=== PATIENT | male | born 1965 | race Caucasian/White ===

== ENCOUNTER 2017-03-09 08:26 | Day surgery (SDC) | payer BC ==
--- NOTE | ~2017-03-09 | EGD ---
EGD REPORT [facility] [address] [place]. [address] NAME: ROSANNA EARL : [birth year] STATUS : [facility]#: [id number] AGE: 51 ADM/REG DATE : 03/09/17 MR#: [id number] REPORT SERV DATE: 03/09/17 DICTATED BY: DONALDO LOPES DATE: 03/09/17 REPORT STATUS : Draft [facility]ANS[facility]IBED BY: [facility] DATE: 03/09/17 Endoscopy Center Patient Name: Rosanna Earl Date of : 1965 Attending MD: DONALDO LOPES MD Procedure Date No Time: 03/09/2017 Procedure: Colonoscopy Indications: Iron deficiency anemia; Crohn's ileitis; Humira 40mg qowk. Patient Profile: Informed consent was obtained from the patient by me prior to the procedure. Risks, benefits, and alternatives were discussed including the risk of bleeding, perforation, infection, reaction to medicine, missed lesion, and cardiopulmonary complications. Referring MD: JOHNNY DAILY Medicines: Monitored Anesthesia Care Complications: No immediate complications. Procedure: Pre-Anesthesia Assessment: - ASA Grade Assessment: III - A patient with severe systemic disease. After I obtained informed consent, the scope was passed under direct vision. Throughout the procedure, the patient's blood pressure, pulse, and oxygen saturations were monitored continuously. The PCF [id number] was introduced through the anus and advanced to the cecum, identified by appendiceal orifice and ileocecal valve. The colonoscope was slowly withdrawn with careful examination all mucosal surfaces including specific attention around flexures and tip deflection behind folds; retroflexion performed in rectum. The colonoscopy was performed without difficulty. The patient tolerated the procedure well. The quality of the bowel preparation was adequate. The ileocecal valve, appendiceal orifice and rectum were photographed. Findings: A localized area of mucosa in the terminal ileum and at ICV was severely congested, erythematous, ulcerated and idiebwkt-whnpkrz-gydrzacth. Biopsies were taken with a cold forceps for histology. Unable to enter ileum. The colon (entire examined portion) appeared normal. Biopsies were taken with a cold forceps for histology from R, mid, and L colon. Internal hemorrhoids were found during retroflexion and were mild. Impression: - Congested, erythematous, ulcerated and EGD REPORT [place] [id number] [place]. [address] NAME: ROSANNA EARL : [birth year] STATUS : [facility]#: [id number] AGE: 51 ADM/REG DATE : 03/09/17 MR#: [id number] REPORT SERV DATE: 03/09/17 DICTATED BY: DONALDO LOPES DATE: 03/09/17 REPORT STATUS : Draft TRANSCRIBED BY: [facility] DATE: 03/09/17 yiwhaeqf-cgelwdc-jbeulraze mucosa in the terminal ileum. Biopsied. - The entire examined colon is normal. Biopsied. - Internal hemorrhoids. Recommendation: - Patient has a contact number available for emergencies. The signs and symptoms of potential delayed complications were discussed with the patient. Return to normal activities tomorrow. Written discharge instructions were provided to the patient. - Regular diet. - Continue present medications. - Await pathology results. - Repeat colonoscopy for surveillance based on pathology results. - Follow up Humira level and consider increase to once weekly. - Additional Entocort. Procedure Code(s): --- Professional --- 06207, Colonoscopy, flexible, proximal to splenic flexure; with biopsy, single or multiple Diagnosis Code(s): --- Professional --- K63.3, Ulcer of intestine K63.89, Other specified diseases of intestine K64.8, Other hemorrhoids D50.9, Iron deficiency anemia, unspecified CPT copyright 2013 [employer]. All rights reserved. The codes documented in this report are preliminary and upon application manager review may be revised to meet current compliance requirements. DONALDO LOPES MD 03/09/2017 10:29 AM This report has been signed electronically. Number of Addenda: 0 Note Initiated On: 03/09/2017 9:41 AM Scope Withdrawal Time 0 hours 12 minutes 33 seconds [id number] [id number]
--- NOTE | ~2017-03-09 | EGD ---
EGD REPORT [facility] [address] [place]. [address] NAME: ROSANNA EARL : [birth year] STATUS : REG [facility] [place] PAT#: [id number] AGE: 51 ADM/REG DATE : 03/09/17 MR#: [id number] REPORT SERV DATE: 03/09/17 DICTATED BY: DONALDO LOPES DATE: 03/09/17 REPORT STATUS : Draft [facility] DATE: 03/09/17 Endoscopy Center Patient Name: Rosanna Earl Date of : 1965 Attending MD: DONALDO LOPES MD Procedure Date No Time: 03/09/2017 Procedure: Upper GI endoscopy Indications: Iron deficiency anemia; no acid suppression. Patient Profile: Informed consent was obtained from the patient by me prior to the procedure. Risks, benefits, and alternatives were discussed including the risk of bleeding, perforation, infection, reaction to medicine, missed lesion, and cardiopulmonary complications. Referring MD: JOHNNY DAILY Medicines: Monitored Anesthesia Care Complications: No immediate complications. Procedure: Pre-Anesthesia Assessment: - ASA Grade Assessment: III - A patient with severe systemic disease. After obtaining informed consent, the endoscope was passed under direct vision. Throughout the procedure, the patient's blood pressure, pulse, and oxygen saturations were monitored continuously. The GIF H190 [id number] was introduced through the mouth, and advanced to the second part of duodenum. The endoscope was withdrawn with careful examination all mucosal surfaces including retroflexion stomach. The upper GI endoscopy was accomplished without difficulty. The patient tolerated the procedure well. Findings: The first part of the duodenum and 2nd part of the duodenum were normal. Biopsies were taken with a cold forceps for histology. Localized moderately erythematous mucosa was found in the gastric antrum. Biopsies were taken with a cold forceps for histology. The cardia, gastric body and gastric fundus (on retroflexion) were normal. The examined esophagus was normal. The Z-line was irregular, no nodules or esophagitis. Biopsies were taken with a cold forceps for histology. Impression: - Normal first part of the duodenum and 2nd part of the duodenum. Biopsied. - Erythematous mucosa in the antrum. Biopsied. - Normal cardia, gastric body and gastric fundus. EGD REPORT [address] [address] NAME: ROSANNA EARL : [birth year] STATUS : REG [facility] PAT#: [id number] AGE: 51 ADM/REG DATE : 03/09/17 MR#: [id number] REPORT SERV DATE: 03/09/17 DICTATED BY: DONALDO LOPES DATE: 03/09/17 REPORT STATUS : Draft TRANSCRIBED BY: [employer] DATE: 03/09/17 - Normal esophagus. - Z-line irregular,. Biopsied. Recommendation: - Patient has a contact number available for emergencies. The signs and symptoms of potential delayed complications were discussed with the patient. Return to normal activities tomorrow. Written discharge instructions were provided to the patient. - Regular diet. - Continue present medications. - Await pathology results. - Start Nexium OTC daily. - Avoid NSAID's. Procedure Code(s): --- Professional --- 99583, Esophagogastroduodenoscopy, flexible, transoral; with biopsy, single or multiple Diagnosis Code(s): --- Professional --- K31.9, Disease of stomach and duodenum, unspecified K22.8, Other specified diseases of esophagus D50.9, Iron deficiency anemia, unspecified CPT copyright 2013 [employer]. All rights reserved. The codes documented in this report are preliminary and upon cable supervisor review may be revised to meet current compliance requirements. DONALDO LOPES MD 03/09/2017 10:06 AM This report has been signed electronically. Number of Addenda: 0 Note Initiated On: 03/09/2017 9:48 AM Scope Withdrawal Time 0 hours 0 minutes 0 seconds [address] [place] [address]
[~2017-03-09 08:26] MED LIST: CHLOR-PHENIR4 MG PO; DSS PO; ENTOCORT3 PO; FERROUS SULF325 M1 PO; HUMIR1 SC; HUMIRA SC; LINZESS 290 M290 MCG PO; LIPITOR10 PO; MIRALAX POWDER1 PKT PO; MSCONT15 PO; MSCONT60 PO; PLAQ200B PO; PRILO PO; PRIN20 PO; SULFAZINE500 MG PO; VALIUM10 MG PO
== END 2017-03-09 23:59 | disposition home or self-care (01) ==
LOC: DMU 08:26
PROVIDERS: Internal Medicine Gastroenterology
PROC: 0DB68ZX Excision of Stomach, Via Natural or Artificial Opening Endoscopic, Diagnostic (ICD-10-PCS; 2017-03-09)
PROC: 0DBB8ZX Excision of Ileum, Via Natural or Artificial Opening Endoscopic, Diagnostic (ICD-10-PCS; 2017-03-09)
PROC: 0DBE8ZX Excision of Large Intestine, Via Natural or Artificial Opening Endoscopic, Diagnostic (ICD-10-PCS; 2017-03-09)
PROC: 0DB98ZX Excision of Duodenum, Via Natural or Artificial Opening Endoscopic, Diagnostic (ICD-10-PCS; principal; 2017-03-09 10:00)
PROC: 0DB58ZX Excision of Esophagus, Via Natural or Artificial Opening Endoscopic, Diagnostic (ICD-10-PCS; 2017-03-09 10:00)
DX: K52.9 Noninfective gastroenteritis and colitis, unspecified (principal); K63.3 Ulcer of intestine; I10 Essential (primary) hypertension; E78.00 Pure hypercholesterolemia, unspecified; K31.9 Disease of stomach and duodenum, unspecified; K22.8 Other specified diseases of esophagus; K63.89 Other specified diseases of intestine; K64.8 Other hemorrhoids; I25.2 Old myocardial infarction; G47.33 Obstructive sleep apnea (adult) (pediatric); Z88.0 Allergy status to penicillin; Z88.8 Allergy status to other drugs, medicaments and biological substances
CPT/HCPCS: 88305